=== PATIENT | male | born 1975 | race Caucasian/White ===

== ENCOUNTER 2016-12-03 12:17 | Inpatient (IN) | payer MEDICAID ==
[~2016-12-03] VITALS: Ht 193 cm; Wt 170.6 kg
[2016-12-03] VITALS (12 sets, daily range): BP systolic 104–154
[2016-12-03] MEDS ORDERED: OLANZapine 10 MG TAB.RAPDIS PO ONE (12:45)
[2016-12-03] MEDS ORDERED: PROMETHAZINE HCL 25 MG/ML AMP ONE (13:38)
[2016-12-03 14:06] LABS: BASOPHILS # (AUTO) 0.1 K/uL (0.0-0.2); BASOPHILS % (AUTO) 0.8 % (0.0-2.0); EOSINOPHILS # (AUTO) 0.4 K/uL (0.0-0.4); EOSINOPHILS % (AUTO) 4.1 % (0.0-4.0); HEMATOCRIT 44.7 % (36-54); HEMOGLOBIN 14.2 g/dL (14.0-18.0); LYMPHOCYTES % (AUTO) 34.8 % (20.5-51.5); MEAN CORPUSCULAR HEMOGLOBIN 27 pg (27-31); MEAN CORPUSCULAR HGB CONC 32 % (32-36); MEAN CORPUSCULAR VOLUME 85 fL (79.0-98.0); MONOCYTES # (AUTO) 0.6 K/uL (0.0-1.0); MONOCYTES % (AUTO) 6.9 % (1.7-9.3); NEUTROPHILS # (AUTO) 4.6 K/uL (1.8-7.7); NEUTROPHILS % (AUTO) 53.4 % (40.0-70.0); PLATELET COUNT (AUTO) 254 K/uL (130-430); RED BLOOD CELL COUNT(AUTO) 5.23 MIL/uL (4.2-6.2); RED CELL DISTRIBUTION WIDTH 14.4 % (9.0-15.0); WHITE BLOOD COUNT (AUTO) 8.7 K/uL (4.8-10.8)
[2016-12-03 14:20] LABS: ALANINE AMINOTRANSFERASE 197 U/L (12-78); ALBUMIN 3.6 g/dL (3.4-4.8); ANION GAP 10 (5-15); ASPARTATE AMINOTRANSFERASE 131 U/L (10-37); CALCIUM 8.2 mg/dL (8.4-11.0); CHLORIDE 106 mmol/L (98-107); CREATININE 1.13 mg/dL (0.55-1.30); GLUCOSE 205 mg/dL (70-99); SALICYLATE 1 mg/dL (3-30); SODIUM SERUM 140 mmol/L (136-145); TOTAL BILIRUBIN 0.2 mg/dL (0.0-1.0); UREA NITROGEN, BLOOD 11 mg/dL (8-21)
[2016-12-03 14:21] LABS: GFR AFRICAN AMERICAN 92 mL/min (>90)
[2016-12-03 14:25] LABS: ACETAMINOPHEN < 1 ug/mL (1-30)
[2016-12-03] MEDS ORDERED: PROMETHAZINE HCL 25 MG/ML AMP IM ONE (14:30)
[2016-12-03 14:31] LABS: ALCOHOL, BLOOD 358 mg/dL (<10)
[2016-12-03] MEDS ORDERED: FOLIC ACID 1 MG, THIAMINE HCL 100 MG, MAGNESIUM SULFATE 1 GM, MVI 10 ML in NACL 0.9% 1,... IV ONE (14:45)
[2016-12-03] MEDS ORDERED: HALOPERIDOL LACTATE 5 MG/ML VIAL IVP PRN (15:00)
[2016-12-03] MEDS ORDERED: LORazepam 2 MG/ML VIAL IVP PRN (15:00)
[2016-12-03 15:26] LABS: BILIRUBIN,URINE NEGATIVE (NEGATIVE); BLOOD, URINE NEGATIVE (NEGATIVE); CLARITY/URINE CLEAR (CLEAR); COLOR,URINE YELLOW (YELLOW); GLUCOSE,URINE NEGATIVE (NEGATIVE); KETONES,URINE NEGATIVE (NEGATIVE); LEUKOCYTE ESTERASE ,URINE NEGATIVE (NEGATIVE); NITRITE, URINE NEGATIVE (NEGATIVE); PH,URINE 5.5 (5.0-8.0); PROTEIN URINE TRACE (NEGATIVE); UROBILINOGEN,URINE 0.2 (0.2-1.0)
[2016-12-03 15:39] LABS: BARBITURATE, URINE NEGATIVE (NEG <=200); BENZODIAZEPINE, URINE POSITIVE (NEG <=150); CANNABINOID, URINE NEGATIVE (NEG <=50); COCAINE, URINE NEGATIVE (NEG <=150); METHAMPHETAMINES SCREEN,URINE NEGATIVE (NEG <=500); OPIATE, URINE NEGATIVE (NEG <=100); PHENCYCLIDINE SCREEN,URINE NEGATIVE (NEG <=25); UR TRICYCLIC ANTIDEPRESSANTS NEGATIVE (NEG <=300); URINE AMPHETAMINE NEGATIVE (NEG <=500); URINE METHADONE NEGATIVE (NEG <=200); URINE OXYCODONE SCREEN NEGATIVE (NEG <=100); URINE PROPOXYPHENE SCREEN NEGATIVE (NEG <=300)
[2016-12-03 15:44] LABS: BACTERIA,URINE FEW /HPF (None Seen); MUCUS,URINE None Seen /LPF (None Seen); RBC,URINE NONE SEEN /HPF (0-3); WBC,URINE NONE SEEN /HPF (0-3)
[2016-12-03 17:33] LABS: ABG TOTAL HEMOGLOBIN 15.2 G/dL (12.0-18.0); BLOOD GAS BASE EXCESS -4.8 mmol/L (-3.0-3.0); BLOOD GAS COHb% 0.7 % (0.5-1.5); BLOOD GAS PH 7.224 (7.350-7.450); BLOOD O2Hb% 91.5 % (94.0-97.0)
[2016-12-03 17:34] LABS: BLOOD GAS HHB 7.3 % (0.0-6.0)
[2016-12-03] MEDS ORDERED: DEXTROSE 50% JECT 50 ML DISP.SYRIN IVP PRN (18:45)
[2016-12-03] MEDS: LORazepam 2 MG/ML VIAL IVP PRN (20:09)
[2016-12-03] MEDS: LR 1,000 ML IV SCH (20:37)
[2016-12-03] MEDS: INSULIN REGULAR, HUMAN 100 UNITS/ML, 10 ML VIAL (novoLIN R) SUBCUT PRN (21:00)
[2016-12-04] VITALS (21 sets, daily range): BP systolic 114–170
[2016-12-04] MEDS: LR 1,000 ML IV SCH (05:17)
[2016-12-04 06:41] LABS: BASOPHILS # (AUTO) 0.1 K/uL (0.0-0.2); BASOPHILS % (AUTO) 0.6 % (0.0-2.0); EOSINOPHILS # (AUTO) 0.3 K/uL (0.0-0.4); EOSINOPHILS % (AUTO) 2.4 % (0.0-4.0); HEMATOCRIT 44.6 % (36-54); HEMOGLOBIN 14.3 g/dL (14.0-18.0); LYMPHOCYTES # (AUTO) 1.8 K/uL (1.0-5.5); LYMPHOCYTES % (AUTO) 16.1 % (20.5-51.5); MEAN CORPUSCULAR HEMOGLOBIN 27 pg (27-31); MEAN CORPUSCULAR HGB CONC 32 % (32-36); MEAN CORPUSCULAR VOLUME 85 fL (79.0-98.0); MONOCYTES # (AUTO) 0.7 K/uL (0.0-1.0); MONOCYTES % (AUTO) 6.5 % (1.7-9.3); NEUTROPHILS # (AUTO) 8.2 K/uL (1.8-7.7); NEUTROPHILS % (AUTO) 74.4 % (40.0-70.0); PLATELET COUNT (AUTO) 240 K/uL (130-430); RED BLOOD CELL COUNT(AUTO) 5.26 MIL/uL (4.2-6.2); RED CELL DISTRIBUTION WIDTH 14.6 % (9.0-15.0); WHITE BLOOD COUNT (AUTO) 11.1 K/uL (4.8-10.8)
[2016-12-04 06:45] LABS: ALBUMIN 3.6 g/dL (3.4-4.8); CALCIUM 8.6 mg/dL (8.4-11.0); CREATININE 0.98 mg/dL (0.55-1.30); POTASSIUM 3.6 mmol/L (3.5-5.1); TOTAL BILIRUBIN 0.7 mg/dL (0.0-1.0); TOTAL PROTEIN, SERUM 7.9 g/dL (6.4-8.3)
[2016-12-04 07:57] LABS: ABG TOTAL HEMOGLOBIN 15.3 G/dL (12.0-18.0); BLOOD GAS BASE EXCESS -1.9 mmol/L (-3.0-3.0); BLOOD GAS COHb% 0.9 % (0.5-1.5); BLOOD GAS HHB 5.5 % (0.0-6.0); BLOOD O2Hb% 93.2 % (94.0-97.0)
[2016-12-04] MEDS: INSULIN REGULAR, HUMAN 100 UNITS/ML, 10 ML VIAL (novoLIN R) SUBCUT PRN ×3 (11:53→20:47)
[2016-12-04] MEDS ORDERED: cloNIDine HCL 0.2 MG TABLET PO PRN (13:15)
[2016-12-04] MEDS ORDERED: CARVEDILOL 12.5 MG TABLET (COREG) PO ONE (13:45)
[2016-12-04] MEDS ORDERED: LORA2TAB95 PO (17:02)
[2016-12-04] MEDS: CARVEDILOL 12.5 MG TABLET (COREG) PO SCH (20:39)
[2016-12-05] VITALS: BP_SYST 123
[2016-12-05 04:38] VITALS: BP_SYST 136
[2016-12-05 06:38] LABS: BASOPHILS # (AUTO) 0.1 K/uL (0.0-0.2); BASOPHILS % (AUTO) 0.6 % (0.0-2.0); EOSINOPHILS # (AUTO) 0.4 K/uL (0.0-0.4); EOSINOPHILS % (AUTO) 4.1 % (0.0-4.0); HEMOGLOBIN 14.3 g/dL (14.0-18.0); LYMPHOCYTES # (AUTO) 1.6 K/uL (1.0-5.5); LYMPHOCYTES % (AUTO) 16.5 % (20.5-51.5); MEAN CORPUSCULAR HEMOGLOBIN 27 pg (27-31); MEAN CORPUSCULAR HGB CONC 32 % (32-36); MEAN CORPUSCULAR VOLUME 85 fL (79.0-98.0); MONOCYTES # (AUTO) 0.5 K/uL (0.0-1.0); MONOCYTES % (AUTO) 5.6 % (1.7-9.3); NEUTROPHILS # (AUTO) 7.2 K/uL (1.8-7.7); NEUTROPHILS % (AUTO) 73.2 % (40.0-70.0); PLATELET COUNT (AUTO) 231 K/uL (130-430); RED BLOOD CELL COUNT(AUTO) 5.26 MIL/uL (4.2-6.2); RED CELL DISTRIBUTION WIDTH 14.2 % (9.0-15.0); WHITE BLOOD COUNT (AUTO) 9.8 K/uL (4.8-10.8)
[2016-12-05 06:39] LABS: ALBUMIN 3.3 g/dL (3.4-4.8); CALCIUM 8.7 mg/dL (8.4-11.0); CREATININE 1.09 mg/dL (0.55-1.30); POTASSIUM 3.8 mmol/L (3.5-5.1); TOTAL BILIRUBIN 1.4 mg/dL (0.0-1.0); TOTAL PROTEIN, SERUM 7.6 g/dL (6.4-8.3)
[2016-12-05] MEDS: INSULIN REGULAR, HUMAN 100 UNITS/ML, 10 ML VIAL (novoLIN R) SUBCUT PRN ×4 (06:52→21:19)
[2016-12-05 07:54] VITALS: BP_SYST 123
[2016-12-05] MEDS: CARVEDILOL 12.5 MG TABLET (COREG) PO SCH ×2 (08:27→20:53)
[2016-12-05 16:39] VITALS: BP_SYST 146
[2016-12-05] MEDS: metFORMIN HCL 500 MG TABLET PO SCH (17:24)
[2016-12-05 20:00] VITALS: BP_SYST 140
[2016-12-06 00:30] VITALS: BP_SYST 145
[2016-12-06 04:00] VITALS: BP_SYST 140
[2016-12-06] MEDS: INSULIN REGULAR, HUMAN 100 UNITS/ML, 10 ML VIAL (novoLIN R) SUBCUT PRN ×2 (06:15→12:17)
[2016-12-06 07:49] VITALS: BP_SYST 130
[2016-12-06] MEDS: metFORMIN HCL 500 MG TABLET PO SCH (08:43)
[2016-12-06] MEDS: CARVEDILOL 12.5 MG TABLET (COREG) PO SCH (08:44)
[2016-12-06 11:16] VITALS: BP_SYST 132
[2016-12-06] MEDS: LORazepam 2 MG/ML VIAL IVP PRN (15:52)
[2016-12-06 16:00] VITALS: BP_SYST 148
[2016-12-06] MEDS ORDERED: metFORMIN HCL 500 MG TABLET PO SCH (18:00)
[2016-12-06 18:21] VITALS: BP_SYST 148
== END 2016-12-06 19:30 | DRG 812 ==
LOC: SED 12:17 → SIC 14:51 → SMU 12-04 18:22
PROVIDERS: ADMIT Internal Medicine; ATTEND Internal Medicine
PROC: 5A09357 Assistance with Respiratory Ventilation, Less than 24 Consecutive Hours, Continuous Positive Airway Pressure (ICD-10-PCS; principal; 2016-12-03)
DX: T42.4X2A Poisoning by benzodiazepines, intentional self-harm, initial encounter (principal); J96.02 Acute respiratory failure with hypercapnia; F33.2 Major depressive disorder, recurrent severe without psychotic features; F10.239 Alcohol dependence with withdrawal, unspecified; F10.229 Alcohol dependence with intoxication, unspecified; E11.9 Type 2 diabetes mellitus without complications; T51.92XA Toxic effect of unspecified alcohol, intentional self-harm, initial encounter; I10 Essential (primary) hypertension; Y90.8 Blood alcohol level of 240 mg/100 ml or more; E66.9 Obesity, unspecified; R45.851 Suicidal ideations; G47.33 Obstructive sleep apnea (adult) (pediatric); Y92.89 Other specified places as the place of occurrence of the external cause; Y93.89 Activity, other specified; Y99.8 Other external cause status; Z81.8 Family history of other mental and behavioral disorders; Z68.42 Body mass index [BMI] 45.0-49.9, adult; Z88.2 Allergy status to sulfonamides
CPT/HCPCS: 36415; 36600; 71010; 80053; 80061; 80307; 81000-TC; 82803-TC; 82962; 83036; 83735-TC; 85025; 87081; 93005; 94660; 96372; 99291; G0480; G0481; G0482; J1815; J2060; J2550; J3411; J3475; J3490; J7030; J7120